=== PATIENT | female | born 1990 | race Two or more races ===

== ENCOUNTER 2019-05-20 18:14 | Inpatient (IN) | payer MEDICAID ==
[~2019-05-20] VITALS: Ht 162.6 cm; Wt 57.6 kg
--- NOTE | 2019-05-20 18:40 | NUR ---
DR ARITA AT BEDSIDE FOR EVAL.
--- NOTE | 2019-05-20 18:45 | NUR ---
IV LINE STARTED BLOOD DRAWN AND SENT TO LAB.
[2019-05-20] MEDS ORDERED: ONDANSETRON HCL/PF 4 MG/2 ML VIAL ONE (18:46)
[2019-05-20] MEDS ORDERED: MORPHINE SULFATE INJ 2 MG/ML DISP.SYRIN ONE (18:47)
[2019-05-20 18:50] LABS: BASOPHILS # (AUTO) 0.1 /CMM (0.0-0.2); BASOPHILS % (AUTO) 1.7 % (0.0-2.0); EOSINOPHILS % (AUTO) 5.9 % (0.0-6.0); HEMATOCRIT 41 % (33-45); HEMOGLOBIN 13.7 g/dL (11.5-14.8); LYMPHOCYTES # (AUTO) 1.6 /CMM (0.8-4.8); LYMPHOCYTES % (AUTO) 18.8 % (20.0-44.0); MEAN CORPUSCULAR HGB CONC 33 g/dl (31.0-36.0); MEAN CORPUSCULAR VOLUME 91 fL (82-100); MONOCYTES # (AUTO) 0.6 /CMM (0.1-1.30); MONOCYTES % (AUTO) 7.2 % (2.0-12.0); NEUTROPHILS # (AUTO) 5.6 /CMM (1.8-8.9); NEUTROPHILS % (AUTO) 66.4 % (43.0-81.0); PLATELET COUNT (AUTO) 320 /CMM (150-450); RED BLOOD CELL COUNT(AUTO) 4.54 MIL/uL (4.0-5.2); WHITE BLOOD COUNT (AUTO) 8.4 K/uL (4.3-11.0)
--- NOTE | 2019-05-20 18:55 | NUR ---
U/S TECH AT [facility] FOR GALLBLADDER ULTRASOUND.
[2019-05-20 18:56] LABS: CALCIUM, SERUM 8.6 mg/dL (8.5-10.1); CREATININE 0.7 mg/dL (0.6-1.3)
[2019-05-20] MEDS ORDERED: MORPHINE SULFATE INJ 2 MG/ML DISP.SYRIN IV ONE (19:00)
[2019-05-20] MEDS ORDERED: ONDANSETRON HCL/PF 4 MG/2 ML VIAL IVP ONE (19:00)
[2019-05-20] MEDS ORDERED: IV NS 0.9% 500 ML BAG IV ONE (19:00)
[2019-05-20 19:03] LABS: ALBUMIN 3.9 g/dL (3.4-5.0); BILIRUBIN,DIRECT 0.4 mg/dL (0.0-0.2); BILIRUBIN,TOTAL 0.7 mg/dL (0.2-1.0)
--- NOTE | 2019-05-20 19:13 | NUR ---
REPORT TO PLASTIC MACHINE OPERATOR NURSE SHEN MARSHALL FOR LINDA.
[2019-05-20 19:14] LABS: APPEARANCE,URINE Clear (CLEAR); BILIRUBIN,URINE Negative (NEGATIVE); BLOOD, URINE Large Ery/uL (NEGATIVE); COLOR,URINE Pink (YELLOW); KETONES,URINE Negative (NEGATIVE); LEUKOCYTE ESTERASE ,URINE Negative (NEGATIVE); NITRITE, URINE Negative (NEGATIVE); PH,URINE 8.5 (5.0-8.0); PROTEIN,URINE Trace mg/dl (NEGATIVE); UGLUCOSE Negative (NEGATIVE)
[2019-05-20 19:30] LABS: BACTERIA,URINE Few /HPF (None Seen); RBC,URINE 51-80 /HPF (0-2); SQUAMOUS EPITHELIAL CELL,UR Few /HPF (None Seen); WBC,URINE 0-2 /HPF (0-3)
--- NOTE | 2019-05-20 20:14 | NUR ---
CALLED [facility] REQUESTING TRANSFER, [facility] STATES ONLY ACCEPTING TRAUMA AT ALL [facility]
--- NOTE | 2019-05-20 20:20 | NUR ---
CALLED [facility], RN STATES NO ERCP SERVICE AVAILABLE AT THE MOMENT
--- NOTE | 2019-05-20 20:55 | NUR ---
PT IN BED AWAKE AND ALERT. RESTING COMFORTABLY. BREATHING EVENLY. NO C/O PAIN OR DISCOMFORT . WILL CONT TO MONITOR.
--- NOTE | 2019-05-20 21:11 | NUR ---
SPOKE TO TOMY COREAS CM FROM [facility], OVER THE PHONE. CLINICAL INFO GIVEN.
--- NOTE | 2019-05-20 22:22 | NUR ---
CODY GA AT [facility], PRESENTED CASE TO AND DECLINED CASE
--- NOTE | 2019-05-20 22:31 | NUR ---
pt reported she is not taking any medications at home
--- NOTE | 2019-05-20 23:06 | NUR ---
ROOM 203
[2019-05-20] MEDS ORDERED: MORPHINE SULFATE INJ 4 MG/ML DISP.SYRIN ONE (23:18)
--- NOTE | 2019-05-20 23:23 | NUR ---
report given to kayli on 2nd floor
--- NOTE | 2019-05-20 23:27 | NUR ---
PT W/ C/O SEVERE ABD PAIN. DR GRULLON MADE AWARE W/ A NEW ORDER FOR MORPHINE 4MG IV X ONE. NOTED [facility] CARRIED OUT
[2019-05-20] MEDS ORDERED: MORPHINE SULFATE INJ 4 MG/ML DISP.SYRIN IV ONE (23:30)
--- NOTE | 2019-05-20 23:40 | NUR ---
PT WAS TRANSFERRED TO THE 2ND FLOOR IN STABLE CODITION.
--- NOTE | 2019-05-21 | NUR ---
MS BATTERY HAND NOTES PATIENT RECEIVED VIA GURNEY ACCOMPANIED BY ER STAFF. PATIENT IS ABLE TO AMBULATE, STABLE. A/O X 4, MOSTLY FAROESE SPEAKING. STABLE ON RA WITH BREATHING EVEN AND UNLABORED, NO SOB NOTED. NO SIGNS OF ACUTE DISTRESS. NO COMPLAINTS OF PAIN OR DISCOMFORT AT THE MOMENT. IV ACCESS ON R AC #20. VITALS TAKEN BP 111/ 80 HR 57 SPO2 99% T 98.7 RR 18. SKIN ASSESSMENT DONE. ALL BELONGINGS ACCOUNTED FOR. PATIENT ORIENTED TO ROOM AND STAFF. SAFETY PRECAUTIONS IN PLACE WITH BED IN LOWEST POSITION, CALL LIGHT WITHIN REACH, BREAKS ON, AND SIDE RAILS UP. WILL CONTINUE TO MONITOR.
[2019-05-21] MEDS ORDERED: ONDANSETRON HCL/PF 4 MG/2 ML VIAL IVP PRN (00:30)
[2019-05-21] MEDS: IV D5/0.45 NACL 1,000 ML IV PRN (00:38)
[2019-05-21] MEDS ORDERED: PIPERACILLIN /TAZOBACTAM 2.25 G VIAL IV ONE ×2 (01:21→05:23)
[2019-05-21] MEDS: ZOSYN IVPB 4.5 G in IV D5W 50ml IV SCH ×2 (01:25→05:35)
[2019-05-21] MEDS: MORPHINE SULFATE INJ 2 MG/ML DISP.SYRIN IV PRN ×2 (03:49→16:09)
[2019-05-21 05:52] LABS: BASOPHILS % (AUTO) 0.5 % (0.0-2.0); EOSINOPHILS % (AUTO) 4.8 % (0.0-6.0); HEMATOCRIT 42 % (33-45); HEMOGLOBIN 13.9 g/dL (11.5-14.8); LYMPHOCYTES # (AUTO) 1.3 /CMM (0.8-4.8); LYMPHOCYTES % (AUTO) 16.9 % (20.0-44.0); MEAN CORPUSCULAR HGB CONC 33 g/dl (31.0-36.0); MEAN CORPUSCULAR VOLUME 91 fL (82-100); MONOCYTES # (AUTO) 0.7 /CMM (0.1-1.30); MONOCYTES % (AUTO) 9.4 % (2.0-12.0); NEUTROPHILS # (AUTO) 5.2 /CMM (1.8-8.9); NEUTROPHILS % (AUTO) 68.4 % (43.0-81.0); PLATELET COUNT (AUTO) 309 /CMM (150-450); RED BLOOD CELL COUNT(AUTO) 4.62 MIL/uL (4.0-5.2); WHITE BLOOD COUNT (AUTO) 7.7 K/uL (4.3-11.0)
[2019-05-21] MEDS ORDERED: PIPERACILLIN /TAZOBACTAM 4.5 G in IV D5W 50 ML IV SCH (06:00)
[2019-05-21 06:44] LABS: THYROID STIMULATING HORMONE 3.202 uIU/mL (0.358-3.74)
--- NOTE | 2019-05-21 06:44 | NUR ---
MS RN CLOSING NOTES PATIENT RESTING CURRENTLY RESTING A/O X 4, MOSTLY UKRAINIAN SPEAKING. STABLE ON RA WITH BREATHING EVEN AND UNLABORED, NO SOB NOTED. NO SIGNS OF ACUTE DISTRESS. NO COMPLAINTS OF PAIN OR DISCOMFORT AT THE MOMENT. IV ACCESS ON R AC #20 RUNNING D51/2 NS @ 75ML/ HR. SAFETY PRECAUTIONS IN PLACE WITH BED IN LOWEST POSITION, CALL LIGHT WITHIN REACH, BREAKS ON, AND SIDE RAILS UP. ALL NEEDS ATTENDED TO. PATIENT WAS KEPT CLEAN AND DRY. WILL ENDORSE TO ONCOMING SHIFT ABOUT LINDA.
[2019-05-21 06:55] LABS: ALBUMIN 3.7 g/dL (3.4-5.0); BILIRUBIN,TOTAL 1.3 mg/dL (0.2-1.0); CALCIUM, SERUM 8.4 mg/dL (8.5-10.1); CREATININE 0.7 mg/dL (0.6-1.3); MAGNESIUM 2.6 mg/dL (1.8-2.4); PHOSPHORUS 3.7 mg/dL (2.5-4.9); POTASSIUM 4.2 mmol/L (3.5-5.1); TOTAL PROTEIN, SERUM 7.6 g/dL (6.4-8.2)
--- NOTE | 2019-05-21 07:33 | NUR ---
MS RN OPENING NOTE PATIENT IN BED RESTING COMFORTABLY. PATIENT IN NO ACUTE DISTRESS. NO SOB NOTED. PATIENT BREATHING IS EVEN AND UNLABORED. PATIENT MAINTAINED NPO STATUS AND PATIENT IS MADE AWARE. PATIENT SAFETY PRECAUTIONS IN PLACE. PATIENT BED IS LOCKED AND IN LOWEST POSITION. CALL LIGHT WITHIN REACH. WILL CONTINUE TO MONITOR.
[2019-05-21 08:00] VITALS: BP 103/69
[2019-05-21] MEDS: PANTOPRAZOLE 40 MG VIAL IV SCH (08:09)
[2019-05-21] MEDS: PIPERACILLIN /TAZOBACTAM 3.375 G in IV D5W 100 ML IV SCH ×2 (12:22→20:24)
--- NOTE | 2019-05-21 13:14 | NUR ---
MS RN NOTE PER JANICE MAYORGA AFTER HIDA SCAN IS COMPLETED, MAINTAIN NPO STATUS WITH ICE CHIPS OKAY TO GIVE.
[2019-05-21 16:00] VITALS: BP 99/71
[2019-05-21 16:42] VITALS: BP 107/66
--- NOTE | 2019-05-21 16:44 | NUR ---
MS RN NOTE NOTIFIED JANICE MAYORGA OF HIDA SCAN RESULTS AND MADE AWARE. PER JANICE MAYORGA NOTIFY VICE PRESIDENT PLANNING SURGERY FOR CONSULT. NOTIFIED KIMBERLEY VARGAS MORPHOLOGY TEACHER FOR SURGERY CONSULT AND MADE AWARE OF HIDA SCAN RESULTS. NO NEW ORDERS AT THIS TIME.
--- NOTE | 2019-05-21 18:30 | NUR ---
MS RN NOTE PATIENT SEEN AND EVALUATED BY JANICE MAYORGA AND KIMBERLEY VARGAS. ORDERS SUBMITTED BY KIMBERLEY VARGAS AND WILL FOLLOW THROUGH. PER JANICE MAYORGA HE WILL CONTACT GI FOR CONSULT RECOMMENDATION.
--- NOTE | 2019-05-21 19:00 | NUR ---
MS RN CLOSING NOTE PATIENT IN BED RESTING COMFORTABLY. PATIENT IN NO ACUTE DISTRESS. NO SOB NOTED. PATIENT BREATHING IS EVEN AND UNLABORED. PATIENT KEPT CLEAN, DRY AND COMFORTABLE THROUGHOUT SHIFT. PATIENT MAINTAINED NPO STATUS, PATIENT IS AWARE. PATIENT WAS INFORMED OF MRCP WITH KIMBERLEY VARGAS WITH MEDICAL FIELD REPRESENTATIVE PRESENT AND JANICE MAYORGA SPOKE WITH PATIENT. PATIENT STATES 3/10 ABDOMINAL PAIN AND IS TOLERABLE AT THIS TIME. NO NAUSEA OR VOMITING NOTED AND STATED BY THE PATIENT. PATIENT SAFETY PRECAUTIONS IN PLACE. PATIENT BED IS LOCKED AND IN LOWEST POSITION. CALL LIGHT WITHIN REACH. WILL ENDORSE CARE TO PM SHIFT FOR LINDA.
[2019-05-21 19:55] VITALS: BP 102/70
[2019-05-21 20:00] VITALS: BP 102/70
--- NOTE | 2019-05-21 20:06 | NUR ---
MS/RN OPENING NOTE RECEIVED PATIENT IN BED RESTING COMFORTABLY. PATIENT IN NO ACUTE DISTRESS. NO SOB NOTED. BREATHING IS EVEN AND UNLABORED. PATIENT MAINTAINED NPO STATUS AND PATIENT IS MADE AWARE. AWAITING FOR F/U REGARDING MRCP W/O CONTRAST TO BE DONE. ALL CONSENTS SIGNED. PATIENT SAFETY PRECAUTIONS IN PLACE. PATIENT BED IS LOCKED AND IN LOWEST POSITION. CALL LIGHT WITHIN REACH. WILL CONTINUE TO MONITOR ACCORDINGLY.
[2019-05-22] MEDS: PIPERACILLIN /TAZOBACTAM 3.375 G in IV D5W 100 ML IV SCH ×3 (03:32→20:22)
--- NOTE | 2019-05-22 06:28 | NUR ---
MS/RN CLOSING NOTES: PATIENT IN BED COMFORTABLY RESTING IN BED. PATIENT IN NO ACUTE DISTRESS. NO SOB NOTED. PATIENT BREATHING IS EVEN AND UNLABORED. PATIENT KEPT CLEAN, DRY AND COMFORTABLE THROUGHOUT SHIFT. PATIENT MAINTAINED NPO STATUS SINCE MIDNIGHT, ALL CONSENTS SIGNED. PER MRI COORDINATORNEVA, PROCEDURE IS SCHEDULED AT 0830. ALL NEEDS MET AND RENDERED, ALL DUE MEDS GIVEN ORDERED. PATIENT HAS NO PAIN OR DISCOMFORT AT THIS TIME. PATIENT SAFETY PRECAUTIONS IN PLACE. PATIENT BED IS LOCKED AND IN LOWEST POSITION. CALL LIGHT WITHIN REACH. WILL ENDORSE CARE TO MORNING SHIFT FOR LINDA.
[2019-05-22 06:40] LABS: BASOPHILS % (AUTO) 0.3 % (0.0-2.0); EOSINOPHILS % (AUTO) 3.2 % (0.0-6.0); HEMATOCRIT 41 % (33-45); HEMOGLOBIN 13.5 g/dL (11.5-14.8); LYMPHOCYTES # (AUTO) 1.7 /CMM (0.8-4.8); LYMPHOCYTES % (AUTO) 17.8 % (20.0-44.0); MEAN CORPUSCULAR HGB CONC 33 g/dl (31.0-36.0); MEAN CORPUSCULAR VOLUME 90 fL (82-100); MONOCYTES # (AUTO) 0.6 /CMM (0.1-1.30); MONOCYTES % (AUTO) 6.2 % (2.0-12.0); NEUTROPHILS % (AUTO) 72.5 % (43.0-81.0); PLATELET COUNT (AUTO) 341 /CMM (150-450); RED BLOOD CELL COUNT(AUTO) 4.52 MIL/uL (4.0-5.2); WHITE BLOOD COUNT (AUTO) 9.7 K/uL (4.3-11.0)
[2019-05-22 06:48] LABS: ALBUMIN 3.7 g/dL (3.4-5.0); BILIRUBIN,DIRECT 0.2 mg/dL (0.0-0.2); CALCIUM, SERUM 8.5 mg/dL (8.5-10.1); CREATININE 0.7 mg/dL (0.6-1.3); MAGNESIUM 2.5 mg/dL (1.8-2.4); PHOSPHORUS 3.9 mg/dL (2.5-4.9); POTASSIUM 3.2 mmol/L (3.5-5.1); TOTAL PROTEIN, SERUM 7.8 g/dL (6.4-8.2)
--- NOTE | 2019-05-22 07:25 | NUR ---
MS RN NOTES RECEIVED PATIENT IN BED, ALERT AND AWAKE WATCHING TV. HOB ELEVATED. NO SOB. DENIES ANY C/O PAIN NOR DISCOMFORT AT THIS TIME. RIGHT AC # 20 INTACT AND PATENT INFUSING D5 1/2 NS @ 75ML/HR SAMI WELL. REMAINS NPO AT THIS TIME, AWAITING FOR MRCP TO BE DONE. BED IN LOWEST POSITION, LOCKED. CALL LIGHT WITHIN REACH. ABLE TO VERBALIZE NEEDS.
[2019-05-22 08:00] VITALS: BP 102/53
[2019-05-22] MEDS: PANTOPRAZOLE 40 MG VIAL IV SCH (08:18)
[2019-05-22] MEDS: IV D5/0.45 NACL 1,000 ML IV PRN (09:05)
[2019-05-22] MEDS: POTASSIUM CL. PREMIX PERIPHER. 50 ML IV SCH ×4 (10:12→13:31)
--- NOTE | 2019-05-22 15:00 | NUR ---
MS RN NOTES CALLED MRI DEPT AND SPOKE TO ACRMEN, MRCP WILL NOT BE ABLE TO BE DONE TODAY DUE TO "COIL" IS BROKEN AND AWAITING FOR REPLACEMENT TODAY. RELATED TO DR. MAYORGA
[2019-05-22 16:00] VITALS: BP 97/64
--- NOTE | 2019-05-22 16:37 | NUR ---
MS RN NOTES FOLLOWED UP ON GI CONSULT, CALLED [phone] AND SPOKE TOP URIEL, SHE WILL RELAY GI CONSULT TO DR. HENRY
[2019-05-22] MEDS: MORPHINE SULFATE INJ 2 MG/ML DISP.SYRIN IV PRN ×2 (18:44→22:55)
--- NOTE | 2019-05-22 18:56 | NUR ---
MS RN NOTES ALERT AND ORIENTED X4. HOB ELEVATED. NO S/S OF RESPIRATORY DISTRESS. DENIES ANY C/O PAIN NOR DISCOMFORT AT THIS TIME. RIGHT AC # 20 INTACT AND PATENT INFUSING D5 1/2 NS @ 75ML/HR SAMI WELL. CLEAR LIQUID DIET FOR DINNER SAMI WELL. BED IN LOWEST POSITION, LOCKED. CALL LIGHT WITHIN REACH. IN NO APPARENT DISTRESS.
[2019-05-22 20:00] VITALS: BP_SYST 103; BP_SYST 104; BP_DIAS 66; BP_DIAS 72
--- NOTE | 2019-05-22 20:10 | NUR ---
GORE CUTTER: PT IN BED, AWAKE, A/O X4, ON RA RESPIRATIONS EVEN AND UNLABORED. IV ACCESS PATENT AND FLUSHING WELL, INFUSING WITH D5 1/2 NS AT 75ML/HR. PS 4/10 AFTER GIVING MORPHINE, DENIES ANY NAUSEA/VOMITING AT THIS TIME. DISCUSSED PLAN OF CARE TO PT. AMELIA GOODMAN HELPED WITH TRANSLATION PT IS ICELANDIC SPEAKING ONLY. WILL BE NPO P MN FOR MRCP IN AM. SAFETY PRECAUTIONS FOR FALL INITIATED, CALL LIGHT IN REACH, WILL CONTINUE MONITORING PT.
--- NOTE | 2019-05-22 22:55 | NUR ---
prn morphine: pt c/o 10/05 left and right lower quadrant pain requesting for morphine. prn morphine 2mg ivp administered to pt at this time. will continue to monitor and reassess pt.
[2019-05-23] MEDS: PIPERACILLIN /TAZOBACTAM 3.375 G in IV D5W 100 ML IV SCH ×3 (03:28→21:19)
[2019-05-23] MEDS: IV D5/0.45 NACL 1,000 ML IV PRN ×2 (03:29→22:04)
[2019-05-23 06:22] LABS: BASOPHILS % (AUTO) 0.3 % (0.0-2.0); EOSINOPHILS % (AUTO) 4.6 % (0.0-6.0); HEMATOCRIT 40 % (33-45); HEMOGLOBIN 13.2 g/dL (11.5-14.8); LYMPHOCYTES # (AUTO) 1.7 /CMM (0.8-4.8); MEAN CORPUSCULAR HGB CONC 33 g/dl (31.0-36.0); MEAN CORPUSCULAR VOLUME 91 fL (82-100); MONOCYTES # (AUTO) 0.8 /CMM (0.1-1.30); MONOCYTES % (AUTO) 9.4 % (2.0-12.0); NEUTROPHILS # (AUTO) 5.3 /CMM (1.8-8.9); NEUTROPHILS % (AUTO) 64.7 % (43.0-81.0); PLATELET COUNT (AUTO) 302 /CMM (150-450); RED BLOOD CELL COUNT(AUTO) 4.36 MIL/uL (4.0-5.2); WHITE BLOOD COUNT (AUTO) 8.2 K/uL (4.3-11.0)
--- NOTE | 2019-05-23 06:39 | NUR ---
END OF SHIFT REPORT: PRN MORPHINE ADMINISTERED FOR PT'S C/O 8 RLQ AND LLQ PAIN. REMAINS ON RA RESPIRATIONS EVEN AND UNLABORED. IV ACCESS REMAINS PATENT AND FLUSHING WELL, INFUSING WITH IVF ORDERED, NO S/S OF IV INFILTRATION NOTED. PT ON NPO FOR MRCP TODAY,CHECKLIST AND CONSENT ATTACHED TO CHART. VS REMAINS STABLE, NEEDS ATTENDED. SAFETY PRECAUTIONS FOR FALL REMAINS ENGAGED, CALL LIGHT IN REACH, WILL ENDORSE TO DAY RN FOR CONTINUITY OF CARE.
[2019-05-23 06:49] LABS: ALBUMIN 3.4 g/dL (3.4-5.0); BILIRUBIN,TOTAL 0.8 mg/dL (0.2-1.0); CALCIUM, SERUM 8.4 mg/dL (8.5-10.1); CREATININE 0.7 mg/dL (0.6-1.3); MAGNESIUM 2.6 mg/dL (1.8-2.4); PHOSPHORUS 3.6 mg/dL (2.5-4.9); POTASSIUM 3.6 mmol/L (3.5-5.1); TOTAL PROTEIN, SERUM 7.4 g/dL (6.4-8.2)
--- NOTE | 2019-05-23 07:20 | NUR ---
MS RN NOTES RECEIVED PATIENT IN BED ASLEEP, AROUSABLE TO VERBAL AND TACTILE. HOB ELEVATED. NO SOB. DENIES ANY C/O PAIN NOR DISCOMFORT AT THIS TIME. RIGHT AC # 20 INTACT AND PATENT INFUSING D5 1/2 NS @ 75ML/HR SAMI WELL. STILL ON NPO AT THIS TIME, AWAITING FOR MRCP TO BE DONE. BED IN LOWEST POSITION, LOCKED. CALL LIGHT WITHIN REACH. ABLE TO VERBALIZE NEEDS.
[2019-05-23 08:00] VITALS: BP 98/64
[2019-05-23] MEDS: PANTOPRAZOLE 40 MG VIAL IV SCH (08:34)
--- NOTE | 2019-05-23 09:00 | NUR ---
MS RN NOTES PATIENT OFF UNIT, PATIENT WENT FOR MRCP.
--- NOTE | 2019-05-23 09:43 | NUR ---
MS RN NOTES [facility]
[2019-05-23] MEDS ORDERED: INDOMETHACIN 50 MG SUPP.RECT ONE (12:24)
[2019-05-23] MEDS ORDERED: IOHEXOL 240MG/ML 50 ML IV ONE (12:24)
--- NOTE | 2019-05-23 12:50 | NUR ---
MS RN NOTES PATIENT OFF UNIT, WENT TO OR FOR ERCP.
--- NOTE | 2019-05-23 15:05 | NUR ---
MS RN - RECEIVING NOTES Patient was still at [facility] for ERCP. Was endorsed by nurse Gardiner at 14:30.
[2019-05-23 15:30] VITALS: BP 121/79
[2019-05-23 16:00] VITALS: BP 118/74
--- NOTE | 2019-05-23 16:16 | NUR ---
MS MARSHALL - RECEIVED FROM O.R. Received patient from O.R. at 15:30, in bed, awake, conscious and cooperative. With vital signs of BP= 121/70 HR= 61 RR= 20 T= 97.4. IVF 0.9% NaCl 1L infusing well at midline.
[2019-05-23] MEDS: MORPHINE SULFATE INJ 2 MG/ML DISP.SYRIN IV PRN ×2 (18:09→23:04)
--- NOTE | 2019-05-23 18:35 | NUR ---
MS RN - END OF SHIFT Endorsed patient to shift foreman nurse in bed, awake, conscious, afebrile and cooperative. With IVF D5 0.45% NaCl at 75ml/hr infusing well at right arm midline.
--- NOTE | 2019-05-23 19:32 | NUR ---
MS RN RECEIVE PT IN BED A/O X 4 RESPIRATIONS EVEN AND UNLABORED, NO S/S OF DISTRESS, STABLE. SAFETY MEASURES AT ALL TIMES. WILL CONT TO MONITOR,
[2019-05-23 20:00] VITALS: BP 103/72
[2019-05-23 20:02] VITALS: BP 103/72
[2019-05-24] VITALS (10 sets, daily range): BP systolic 101–115; BP diastolic 59–69
[2019-05-24] MEDS: PIPERACILLIN /TAZOBACTAM 3.375 G in IV D5W 100 ML IV SCH ×3 (04:29→20:11)
--- NOTE | 2019-05-24 06:23 | NUR ---
MS RN PT SLEPT WELL, TOLERATING ROOM AIR, NEEDS ATTENDED AND ANTICIPATED, KEPT CLEAN, DRY AND COMFORTABLE. MONITORED FOR PAIN NO C/O OF PAIN AT THIS TIME. MAINTAINS NPO MIDNIGHT. SAFETY MEASURES AT ALL TIMES. WILL ENDORSE NEXT SHIFT.
[2019-05-24 06:27] LABS: BASOPHILS % (AUTO) 0.3 % (0.0-2.0); EOSINOPHILS % (AUTO) 7.3 % (0.0-6.0); HEMATOCRIT 38 % (33-45); HEMOGLOBIN 12.8 g/dL (11.5-14.8); LYMPHOCYTES # (AUTO) 1.8 /CMM (0.8-4.8); LYMPHOCYTES % (AUTO) 31.9 % (20.0-44.0); MEAN CORPUSCULAR HGB CONC 34 g/dl (31.0-36.0); MEAN CORPUSCULAR VOLUME 91 fL (82-100); MONOCYTES # (AUTO) 0.5 /CMM (0.1-1.30); MONOCYTES % (AUTO) 8.9 % (2.0-12.0); NEUTROPHILS # (AUTO) 2.9 /CMM (1.8-8.9); NEUTROPHILS % (AUTO) 51.6 % (43.0-81.0); PLATELET COUNT (AUTO) 315 /CMM (150-450); WHITE BLOOD COUNT (AUTO) 5.7 K/uL (4.3-11.0)
[2019-05-24 06:54] LABS: ALBUMIN 3.3 g/dL (3.4-5.0); BILIRUBIN,TOTAL 0.7 mg/dL (0.2-1.0); CALCIUM, SERUM 8.5 mg/dL (8.5-10.1); CREATININE 0.6 mg/dL (0.6-1.3); MAGNESIUM 2.5 mg/dL (1.8-2.4); PHOSPHORUS 3.6 mg/dL (2.5-4.9); POTASSIUM 3.5 mmol/L (3.5-5.1); TOTAL PROTEIN, SERUM 7.2 g/dL (6.4-8.2)
--- NOTE | 2019-05-24 08:00 | NUR ---
MS RN RECEIVE PT IN BED A/O X 4 RESPIRATIONS EVEN AND UNLABORED, NO S/S OF DISTRESS, STABLE V/S. NPO POST MIDNIGHT FOR FOR LAP ELIA AND POSSIBLE EXPLOR LAP WITH ALL CONSENTS SIGNED. WITH BRP.CALL LIGHT PLACED WITHIN REACH.SAFETY MEASURES AT ALL TIMES. WILL CONT TO MONITOR,
[2019-05-24] MEDS: PANTOPRAZOLE 40 MG VIAL IV SCH (08:26)
[2019-05-24] MEDS: MORPHINE SULFATE INJ 2 MG/ML DISP.SYRIN IV PRN (09:17)
--- NOTE | 2019-05-24 11:30 | NUR ---
PT WAS BROUGHT TO O.R. FOR LAP ELIA WITH POSSIBLE EXPLOR LAP PROCEDURE.WITH STABLE V/S.
[2019-05-24] MEDS ORDERED: ANESTHESIA TRAY IN PYXIS 1 EA TRAY MC ONE (11:38)
[2019-05-24] MEDS ORDERED: BUPIVACAINE MPF 0.5% W/EPI INJ 30 ML VIAL ONE (11:38)
[2019-05-24] MEDS ORDERED: LIDOCAINE 1% INJ 50 ML MDV IJ ONE (11:38)
[2019-05-24] MEDS ORDERED: FENTANYL PF 100MCG/2ML AMPUL ONE ×2 (11:52→12:52)
[2019-05-24] MEDS ORDERED: SUCCINYLCHOLINE CHLORIDE 20 MG/ML VIAL ONE (11:52)
[2019-05-24] MEDS ORDERED: MIDAZOLAM HCL 2 MG/2ML VIAL ONE (11:52)
[2019-05-24] MEDS ORDERED: CELLULOSE,OXIDIZED 1 EA PACK MC ONE (13:07)
[2019-05-24] MEDS ORDERED: GELATIN SPONGE,ABSORBABLE 1 EA SPONGE TP ONE (13:24)
[2019-05-24] MEDS ORDERED: THROMBIN (BOVINE) 5,000 UNITS VIAL TP ONE (13:24)
[2019-05-24] MEDS ORDERED: HYDROMORPHONE 1 MG/1 ML DISP.SYRIN ONE (14:06)
[2019-05-24] MEDS ORDERED: PHYTONADIONE INJ 10 MG/1 ML AMPUL ONE (14:07)
--- NOTE | 2019-05-24 15:14 | NUR ---
PT CAME BACK FROM O.R. S/P MARLYN RODRIGEZ WITH EXPLOR LAP BY DR CABRAL WITH STABLE V/S. WITH ONGOING IVF NS FROM O.R. TO CONSUME. BP 110/68 HR 81 RR 18 T97.6 O2 SAT 99% RA. DENIES PAIN OR DISTRESS AT THIS TIME.CALL LIGHT PLACED WITHIN REACH.
[2019-05-24] MEDS: IV LR 1000 ML 1,000 ML IV PRN (16:46)
[2019-05-24] MEDS: HYDROMORPHONE 1 MG/1 ML DISP.SYRIN IV PRN ×2 (17:03→23:32)
--- NOTE | 2019-05-24 19:31 | NUR ---
PT RESTING IN BED SLEEPING COMFORTABLY BUT EASILY WAKES UP.DENIES ANY PAIN OR DISTRESS.WITH ONGOING IVF LR AT 150 ML/HR INFUSING WELL.STANDBY ASSIST TO BRP.AMB AD LATRICIA WITH STEADY GAIT.CALL LIGHT PLACED WITHIN REACH.
--- NOTE | 2019-05-24 19:45 | NUR ---
MS/RN RECEIVED PATIENT AWAKE, ALERT, ORIENTED, S/P LAP LAP CHOLECYSTECTOMY, COMFORTABLE, NO DISTRESS NOTED, LAP SITES DRESSING CLEAN AND DRY, NO SIGNS OF BLEEDING NOTED, CALL LIGHT IN REACH. WILL MONITOR.
[2019-05-24] MEDS: HYDROCODONE/APAP 10/325MG 1 EA TABLET PO PRN (20:29)
[2019-05-25] MEDS: IV LR 1000 ML 1,000 ML IV PRN (01:47)
[2019-05-25] MEDS: PIPERACILLIN /TAZOBACTAM 3.375 G in IV D5W 100 ML IV SCH ×2 (04:43→12:24)
[2019-05-25 05:29] LABS: BASOPHILS % (AUTO) 0.3 % (0.0-2.0); EOSINOPHILS % (AUTO) 0.9 % (0.0-6.0); HEMATOCRIT 38 % (33-45); HEMOGLOBIN 12.6 g/dL (11.5-14.8); LYMPHOCYTES # (AUTO) 1.5 /CMM (0.8-4.8); LYMPHOCYTES % (AUTO) 13.9 % (20.0-44.0); MEAN CORPUSCULAR HGB CONC 33 g/dl (31.0-36.0); MEAN CORPUSCULAR VOLUME 90 fL (82-100); MONOCYTES # (AUTO) 0.8 /CMM (0.1-1.30); MONOCYTES % (AUTO) 7.6 % (2.0-12.0); NEUTROPHILS # (AUTO) 8.5 /CMM (1.8-8.9); NEUTROPHILS % (AUTO) 77.3 % (43.0-81.0); PLATELET COUNT (AUTO) 346 /CMM (150-450)
[2019-05-25 05:48] LABS: ALBUMIN 3.3 g/dL (3.4-5.0); BILIRUBIN,TOTAL 0.6 mg/dL (0.2-1.0); CALCIUM, SERUM 8.7 mg/dL (8.5-10.1); CREATININE 0.6 mg/dL (0.6-1.3); MAGNESIUM 2.1 mg/dL (1.8-2.4); PHOSPHORUS 3.4 mg/dL (2.5-4.9); POTASSIUM 3.6 mmol/L (3.5-5.1); TOTAL PROTEIN, SERUM 7.2 g/dL (6.4-8.2)
[2019-05-25] MEDS: HYDROCODONE/APAP 10/325MG 1 EA TABLET PO PRN ×3 (06:19→17:43)
[2019-05-25 08:00] VITALS: BP_SYST 101; BP_SYST 107; BP_DIAS 67
[2019-05-25] MEDS ORDERED: METR500T PO (08:15)
[2019-05-25] MEDS ORDERED: CIPR-262 PO (08:15)
[2019-05-25] MEDS: PANTOPRAZOLE 40 MG VIAL IV SCH (09:29)
--- NOTE | 2019-05-25 12:00 | NUR ---
patient noted with fever 100.1. Cooling measures applied , will continue to monitor
--- NOTE | 2019-05-25 12:20 | NUR ---
Patient tolerated soft diet well. No pain , N/V noted
--- NOTE | 2019-05-25 14:10 | NUR ---
Paged DR. Chaudhari to update on patient. Per dr. Chaudhari patient will stay until tomorrow.
[2019-05-25 16:00] VITALS: BP 101/61
--- NOTE | 2019-05-25 18:44 | NUR ---
patient resting in bed , all needs attended. Tolerated diet well. Pain managed with PRN Calvin well. IV line to the LAC G.20 flushing well. Possible discharge tomorrow . Safety precautions in place and call light within reach. Will endorse to next shift for LINDA.
--- NOTE | 2019-05-25 19:10 | NUR ---
MS RN NOTES RECEIVED PT IN BED AWAKE AND ABLE TO MAKE NEEDS KNOWN. PT A/O X3 HUNGARIAN SPEAKING. RESPIRATIONS EVEN AND UNLABORED WITH NO S/S OF ACUTE DISTRESS OR SOB NOTED. PT NOTED WITH RAC #20 G PATENT AND INTACT AND SL. NO COMPLAINTS OF PAIN AT THIS TIME. SAFETY MEASURES IN PLACE WITH BED IN LOWEST LOCKED POSITION WITH SIDE RAILS UP X2. CALL LIGHT WITHIN REACH. WILL CONTINUE TO MONITOR.
--- NOTE | 2019-05-25 19:30 | NUR ---
MS RN NOTES PT REFUSED PHOTOS AT THIS TIME.
[2019-05-25 20:00] VITALS: BP 99/55
--- NOTE | 2019-05-25 20:20 | NUR ---
MS RN NOTES PT NOTED WITH ELEVATED TEMPERATURE, COOLING MEASURES INITIATED. WILL CONTINUE TO MONITOR.
[2019-05-25] MEDS ORDERED: CIPROFLOXACIN IV RTU 400 MG in PREMIX 1 EA IV SCH (21:00)
[2019-05-25] MEDS ORDERED: METRONIDAZOLE 500MG/ NS 100ML 500 MG in PREMIX 1 EA IV SCH (21:00)
--- NOTE | 2019-05-25 21:30 | NUR ---
MS RN NOTES PT'S TEMP ELEVATED HIGHER, MADE AWARE. NEW ORDER FOR TYLENOL Q6HRS. WILL CONTINUE TO MONITOR.
[2019-05-25] MEDS ORDERED: ACETAMINOPHEN 325 MG TABLET PO PRN (22:00)
--- NOTE | 2019-05-25 23:00 | NUR ---
MS RN NOTES PT TEMP NOTED TO DECREASE WNL 98.8. WILL CONTINUE TO MONITOR.
[2019-05-26] MEDS: IV LR 1000 ML 1,000 ML IV PRN ×2 (00:36→06:53)
--- NOTE | 2019-05-26 07:23 | NUR ---
MS RN NOTES PT IN BED AWAKE AND ABLE TO MAKE NEEDS KNOWN. PT A/O X3 BULGARIAN SPEAKING. RESPIRATIONS EVEN AND UNLABORED WITH NO S/S OF ACUTE DISTRESS OR SOB NOTED THROUGHOUT SHIFT. PT NOTED WITH RAC #20 G PATENT AND INTACT AND SL. NO COMPLAINTS OF PAIN AT THIS TIME. SAFETY MEASURES IN PLACE WITH BED IN LOWEST LOCKED POSITION WITH SIDE RAILS UP X2. CALL LIGHT WITHIN REACH. WILL ENDORSE TO ONCOMING NURSE FOR LINDA.
[2019-05-26 08:00] VITALS: BP 114/63
[2019-05-26 08:41] LABS: ALBUMIN 3.6 g/dL (3.4-5.0); BILIRUBIN,TOTAL 0.5 mg/dL (0.2-1.0); CALCIUM, SERUM 8.9 mg/dL (8.5-10.1); CREATININE 0.6 mg/dL (0.6-1.3); POTASSIUM 3.5 mmol/L (3.5-5.1); TOTAL PROTEIN, SERUM 7.9 g/dL (6.4-8.2)
[2019-05-26] MEDS ORDERED: CIPROFLOXACIN HCL 500 MG TABLET PO SCH (09:00)
[2019-05-26] MEDS: PANTOPRAZOLE 40 MG VIAL IV SCH (09:00)
[2019-05-26] MEDS ORDERED: METRONIDAZOLE 500 MG TABLET PO SCH (09:00)
[2019-05-26] MEDS ORDERED: CIPROFLOXACIN HCL 250 MG TABLET PO SCH (09:00)
[2019-05-26 10:20] LABS: BASOPHILS % (AUTO) 0.3 % (0.0-2.0); HEMATOCRIT 39 % (33-45); HEMOGLOBIN 13.1 g/dL (11.5-14.8); LYMPHOCYTES # (AUTO) 1.4 /CMM (0.8-4.8); LYMPHOCYTES % (AUTO) 16.6 % (20.0-44.0); MEAN CORPUSCULAR HGB CONC 33 g/dl (31.0-36.0); MEAN CORPUSCULAR VOLUME 91 fL (82-100); MONOCYTES # (AUTO) 0.4 /CMM (0.1-1.30); MONOCYTES % (AUTO) 4.6 % (2.0-12.0); NEUTROPHILS # (AUTO) 6.5 /CMM (1.8-8.9); NEUTROPHILS % (AUTO) 76.5 % (43.0-81.0); PLATELET COUNT (AUTO) 336 /CMM (150-450); RED BLOOD CELL COUNT(AUTO) 4.33 MIL/uL (4.0-5.2); WHITE BLOOD COUNT (AUTO) 8.5 K/uL (4.3-11.0)
--- NOTE | 2019-05-26 11:30 | NUR ---
MS/RN NOTE RECEIVED REPORT FROM ROLANDO RAMIREZ. THE PATIENT IS ALERT AND ORIENTED X4. IN ROOM AIR AND DENIES SOB. RESPIRATION REGULAR AND UNLABORED. THE PATIENT IN NO APPARENT DISTRESS. DENIES PAIN. BED LOW AND LOCKED. SIDE RAILS UP X3. CALL LIGHT WITHIN REACH. WILL CONTINUE TO MONITOR.
--- NOTE | 2019-05-26 14:18 | NUR ---
MS/RN NOTE THE PATIENT IS ALERT AND ORIENTED X4. IN ROOM AIR AND SATURATION IS AT 98%. DENIES SOB. RESPIRATION REGULAR AND UNLABORED. DENIES PAIN. DISCHARGE EDUCATION PROVIDED TO THE PATIENT AND SHE VERBALIZED UNDERSTANDING. PRESCRIPTION IS GIVEN TO THE PATIENT AND THE COPY IS SAVED IN THE CHART. THE PATIENT REFUSED PICTURES TO BE TAKEN DESPITE EXPLAINING RISKS AND BENEFITS. PATIENT GOY PICKED UP BY A FAMILY MEMBER ON A PRIVATE CAR. THE PATIENTLEFT THE HOSPITAL IN STABLE CONDITION.
== END 2019-05-26 14:17 | disposition home or self-care (01) | DRG 263 ==
LOC: ER 18:16 → MEDSG2 23:10 → MED 05-22 11:43
PROVIDERS: ADMIT Nurse Practitioner Acute Care; ATTEND Nurse Practitioner Acute Care
DX: K85.10 Biliary acute pancreatitis without necrosis or infection (principal); K80.62 Calculus of gallbladder and bile duct with acute cholecystitis without obstruction; R74.0 Nonspecific elevation of levels of transaminase and lactic acid dehydrogenase [LDH]; E80.6 Other disorders of bilirubin metabolism
CPT/HCPCS: 36415; 71045-TC; 74018; 74181-TC; 76705-TC; 78226; 80048-TC; 80053-TC; 80061-TC; 80076-TC; 81000-TC; 82150-TC; 82247-TC; 82248-TC; 83690-TC; 83735-TC; 84100-TC; 84443-TC; 84703-TC; 85025-TC; 85610-TC; 85730-TC; 86850-TC; 87070-TC; 87075-TC; 87081-TC; A4216; A9537; C9113; G0378; J0330; J0744; J1100; J1170; J1885; J2250; J2270; J2405; J2543; J2704; J2710; J3010; J3430; J3480; J3490; J7040; J7050; J7060; J7120; Q9966

== ENCOUNTER 2019-06-09 09:00 | Emergency (ER) | payer MEDICAID ==
[~2019-06-09] VITALS: Ht 152.4 cm; Wt 54.4 kg
[~2019-06-09 09:00] MED LIST: CIPR-262 PO; METR500T PO
--- NOTE | 2019-06-09 09:31 | NUR ---
JAQUELIN REMOVAL DONE. 13 JAQUELIN REMOVED. PT TOLERATED PROCEDURE WELL. D/C HOME IN STABLE CONDITION.
[2019-06-09 09:32] VITALS: BP 117/65
== END 2019-06-09 09:32 | disposition home or self-care (01) ==
LOC: ER 09:02
DX: Z48.01 Encounter for change or removal of surgical wound dressing (principal); Z79.899 Other long term (current) drug therapy

== ENCOUNTER 2019-09-25 16:50 | Emergency (ER) | payer MEDICAID ==
[~2019-09-25] VITALS: Ht 142.2 cm; Wt 56.7 kg
[2019-09-25] MEDS ORDERED: KETOROLAC TROMETHAMINE INJ 30 MG/ML VIAL ONE (17:27)
[2019-09-25] MEDS ORDERED: KETOROLAC TROMETHAMINE INJ 30 MG/ML VIAL IV ONE (17:30)
[2019-09-25 17:56] LABS: BASOPHILS % (AUTO) 0.6 % (0.0-2.0); EOSINOPHILS % (AUTO) 6.3 % (0.0-6.0); HEMATOCRIT 40 % (33-45); HEMOGLOBIN 13.1 g/dL (11.5-14.8); LYMPHOCYTES # (AUTO) 2.7 /CMM (0.8-4.8); LYMPHOCYTES % (AUTO) 35.7 % (20.0-44.0); MEAN CORPUSCULAR HGB CONC 33 g/dl (31.0-36.0); MEAN CORPUSCULAR VOLUME 90 fL (82-100); MONOCYTES # (AUTO) 0.6 /CMM (0.1-1.30); MONOCYTES % (AUTO) 7.5 % (2.0-12.0); NEUTROPHILS # (AUTO) 3.7 /CMM (1.8-8.9); NEUTROPHILS % (AUTO) 49.9 % (43.0-81.0); PLATELET COUNT (AUTO) 309 /CMM (150-450); RED BLOOD CELL COUNT(AUTO) 4.37 MIL/uL (4.0-5.2); WHITE BLOOD COUNT (AUTO) 7.5 K/uL (4.3-11.0)
[2019-09-25 18:00] LABS: BILIRUBIN,URINE Negative (NEGATIVE); BLOOD, URINE Large Ery/uL (NEGATIVE); COLOR,URINE Yellow (YELLOW); KETONES,URINE Negative (NEGATIVE); LEUKOCYTE ESTERASE ,URINE Negative (NEGATIVE); NITRITE, URINE Negative (NEGATIVE); PH,URINE 6.5 (5.0-8.0); PROTEIN,URINE Negative (NEGATIVE); UGLUCOSE Negative (NEGATIVE); UROBILINOGEN,URINE 0.2 EU/dL (0.2)
[2019-09-25 18:08] LABS: CALCIUM, SERUM 8.7 mg/dL (8.5-10.1); CREATININE 0.6 mg/dL (0.6-1.3); POTASSIUM 3.7 mmol/L (3.5-5.1)
--- NOTE | 2019-09-25 18:10 | NUR ---
BIBS FROM HOME TO ER BED 12. AAOX4. NOT IN REPS DISTRESS. AMBULATORY. CAME IN FOR EPIGASTRIC PAIN SINCE YESTERDAY. PER PT DAVINA IS 5/10 SHARP WHICH IS ALSO FELT AT HER MID BACK. PT DENIES N/V/D. NO ABNORMALITY UPON URINATION. WAS A THE BEDSIDE FOR EVAL. ORDERS RECEIVED, NOTED AND CARRIED OUT. IV LINE OBTAINED ON L AC 20G. MEDICATED ORDERED
[2019-09-25 18:11] LABS: APPEARANCE,URINE SLIGHTLY HAZY (CLEAR)
[2019-09-25 18:13] LABS: ALBUMIN 3.9 g/dL (3.4-5.0); BILIRUBIN,DIRECT 0.1 mg/dL (0.0-0.2); BILIRUBIN,TOTAL 0.2 mg/dL (0.2-1.0); TOTAL PROTEIN, SERUM 7.8 g/dL (6.4-8.2)
[2019-09-25 18:18] LABS: BACTERIA,URINE Few /HPF (None Seen); RBC,URINE 21-50 /HPF (0-2); SQUAMOUS EPITHELIAL CELL,UR Rare /HPF (None Seen); WBC,URINE 0-2 /HPF (0-3)
[2019-09-25 19:14] VITALS: BP 105/65
--- NOTE | 2019-09-25 19:14 | NUR ---
Patient discharged to home in stable condition. Written and verbal after care instructions given. Patient verbalizes understanding of instruction. Pt ambulatory with a steady gait
== END 2019-09-25 19:17 | disposition home or self-care (01) ==
LOC: ER 16:51
DX: R10.11 Right upper quadrant pain (principal); Z90.49 Acquired absence of other specified parts of digestive tract; Z79.899 Other long term (current) drug therapy
CPT/HCPCS: 36415; 76705; 80048; 80076; 81001; 83690; 84703; 85025; 96374; 99284; J1885; 81000-TC

== ENCOUNTER 2020-07-30 17:30 | Emergency (ER) | payer MEDICAID ==
[~2020-07-30] VITALS: Ht 152.4 cm; Wt 61.2 kg
[2020-07-30 17:36] VITALS: BP 124/69
[2020-07-30] MEDS ORDERED: ONDA4TAB11 PO (18:11)
[2020-07-30] MEDS ORDERED: ONDANSETRON 4 MG TAB.RAPDIS ONE (18:15)
[2020-07-30] MEDS: ONDANSETRON 4 MG TAB.RAPDIS SL ONE (18:17)
--- NOTE | 2020-07-30 18:27 | NUR ---
Patient discharged to home in stable condition. Written and verbal after care instructions given. Patient verbalizes understanding of instruction. Pt ambulatory with a steady gait
== END 2020-07-30 18:29 | disposition home or self-care (01) ==
LOC: ER 17:33
DX: K52.9 Noninfective gastroenteritis and colitis, unspecified (principal); R11.2 Nausea with vomiting, unspecified; R10.84 Generalized abdominal pain; Z90.49 Acquired absence of other specified parts of digestive tract; Z79.899 Other long term (current) drug therapy
CPT/HCPCS: 99283; Q0162